=== PATIENT | female | born 1985 | race Caucasian/White ===

== ENCOUNTER → 2016-10-13 | Day surgery (SDC) | payer OTHER ==
[2016-10-13] VITALS (9 sets, daily range): BP systolic 112–139; BP diastolic 62–92; PULSE 62–86; RESP 14–18; O2SAT 95–98
[~2016-10-13] VITALS: Ht 162.6 cm; Wt 57.0 kg
[~2016-10-13] MED LIST: ACET325T51 PO; ALBU8.5H2 INHALATION; ALKA SELTZER; Albuterol 2.5 mg/3 mL Inhalation Solution NEB PRN; Atropine 0.4 mg/mL Inj IVPUSH PRN; Clindamycin 900 mg/50 mL D5W IV ONE; Clindamycin 900 mg/50 mL D5W Premix IV ONE; Dexamethasone 4 mg/mL Inj IVPUSH PRN; EPHEDrine Sulfate 50 mg/mL Inj IVPUSH PRN; EPHEDrine/NS 5 mg/mL 5 mL Syringe ONE; Glycopyrrolate 0.2 MG/ML 1mL Inj ONE; HYDROcodone-APAP 5-325 mg Tablet PO PRN; HYDROmorphone 1 mg/mL Inj IVPUSH PRN; Ketorolac 15 mg/mL Inj IVPUSH ONE; LORA10CA9 PO; Labetalol 5 mg/mL 20 mL Inj IV PRN; Lactated Ringer's 1,000 ML IV ONE; Lactated Ringer's 1,000 ML IV SCH; Lactated Ringer's 500 ML IV PRN; MetoCLOpramide 5 mg/mL 2 mL Inj IVPUSH PRN; NORG1TAB7 PO; Neostigmine 1 mg/mL 10 mL Inj ONE; NyQuil; Ondansetron 2 mg/mL 2 mL Inj IVPUSH PRN; Ondansetron 2 mg/mL 2 mL Inj ONE; Phenylephrine 10,000 mCg/mL Inj IVPUSH PRN; Phenylephrine/NS 100 mCg/mL 10 mL Syringe IVPUSH ONE; Propofol 10,000 mCg/mL 20 mL Inj ONE; Rocuronium 10 mg/mL 5 mL Inj ONE; Ropivacaine-PF 0.5% 30 mL Inj INFILTRATE ONE; fentaNYL-PF 50 mCg/mL 2 mL Inj IVPUSH PRN; fentaNYL-PF 50 mCg/mL 2 mL Inj ONE; hydrALAZINE 20 mg/mL Inj IVPUSH PRN; naproxen PO
--- NOTE | 2016-10-13 15:26 | PCM.ORTHOP ---
Orthopedic Operative Report Date of Service: Oct 13, 2016 Pre Operative Diagnosis right shoulder labral tear, biceps tendinitis Post Operative Diagnosis right shoulder labral tear, biceps tendinitis Procedure right shoulder arthroscopy, labral repair, open biceps tenodesis Surgeon Surgeon: Antonio Bird MD Assistants: Otto Taylor Indication for Procedure Right shoulder labral tear, biceps tendinitis Findings Right shoulder posterior superior labral tear, biceps tendinitis Details of Procedure RN PATIENT CARE SURGEON: During the operation, the services of physician certified surgical tech/first assistant were medically indicated and necessary to provide exposure of the operative site for the surgical procedure and to maintain the limb in a proper position to carry out the operation safely and efficiently. Without the qualified mri assistant being present, it would have extended the operative procedure and made the procedure technically more difficult to perform. INDICATIONS: The patient is Venkat Banuelos who is a 31-year-old female who has developed persistent pain and feelings of instability of the right shoulder. X- rays show the glenohumeral joint to be well maintained. The risks, benefits, and alternatives of surgery were discussed with the patient. The risks included but were not limited to infection, bleeding, damage to vessels and nerves, loss of motion, continued pain, complications due to anesthesia including myocardial infarction, stroke, , etc. The patient stated understanding of the nature of the surgical procedure and gave written and verbal consent to proceed. PROCEDURE: The patient was brought into the operating room and placed supine on the operating room table. A interscalene block was placed in the right shoulder for postoperative pain management, followed by the administration of general anesthesia. Preoperative antibiotics was given The patient was then placed into the lateral decubitus position with the right side up. An axillary role was placed and the legs were padded as necessary to avoid pressure points. The patient was maintained in position with a beanbag evacuation device. A thorough examination of the right shoulder under anesthesia was performed. The patient had 150 degrees of forward elevation and 120 degrees of abduction. In 90 degrees of abduction the patient had 90 degrees of external rotation and 60 degrees of internal rotation. The right shoulder was then examined for stability. In neutral rotation there was 1-2/5 posterior instability. The right upper extremity was then prepped and draped in the usual fashion. The arm was suspended with a well-padded sleeve with eight pounds of balanced suspension in the arthroscopic position. A standard posterior portal was made inferior and medial to the posterior corner of the acromion. The incision was made only through skin. The trocar was advanced through the soft tissue with a blunt-tipped obturator. This was inserted into the glenohumeral joint without difficulty. The arthroscope was placed through the cannula and attached to the video monitor system. Inflow was achieved using the arthroscopic pump. The pressure was maintained at 35-40 mm of mercury throughout the entire procedure. Once the arthroscope confirmed visualization within the shoulder joint, it was advanced anteriorly into the rotator interval beneath the biceps tendon. A Wissinger alana was then used to create the anterior portal from inside-out. A second anterior stab wound incision was made only through skin and an anterior cannula was placed. A routine arthroscopic survey was begun Survey: Biceps tendinitis, posterior superior labral tear from 9:00 to 11:00 Complex surgical procedure: This was an extremely complex surgical procedure which took approximately 30-40% longer to complete than a standard repair. Without the use of a qualified first calender worker, this surgical procedure would have taken even considerably longer and been unable to be performed arthroscopically Posterior labral repair: Attention was then directed toward posterior labral repair. An arthroscopic mid glenoid portal was established anteriorly just above the subscapularis with outside in localization. Attention was then directed posteriorly. Using a liberator elevator, the posterior labrum was elevated. A motorized shaver was then used to gently debride the labral edge, as well as to lightly abrade the exposed glenoid neck and bony surface. Once completed, a suture abram anchor was placed at the inferior-most margin of the exposed bony defect at approximately the 5:00 position. The anchor was deployed with excellent fixation purchase. The two stitches from the inferior- most anchor were then passed across the posterior inferior labral tear beginning the first pass at approximately the 9 position then advancing the labrum superiorly and laterally. A full thickness labral pass was taken filling the defect that was present. After securing this stitch , there appeared to be excellent repair of the posterior inferior labrum. The humeral head was sitting back centralized on the glenoid surface. There was excellent loop and knot security. A second anchor was not needed. There was an excellent restored posterior buttress. The head was well centralized. The biceps tendon was then tagged to preserve tension and then cut at its attachment to the labrum. An open incision along the flexor crease was made approximately 4 cm in length and careful dissection was made underneath the pectoralis tendon and the biceps was carefully dissected. 90 retractors were placed medial and lateral along the humeral shaft. The tendon was marked at the bone and the tendon along the groove and tenodesed with a 7 mm Arthrex biceps tenodesis screw. The skin was closed in layers including a 2-0 Vicryl, 4 -0 Monocryl with Dermabond, Steri-Strips Xeroform, 4 x 4 and Tegaderm dressing. Closure: The arm was then taken out of traction. The instability both in neutral rotation and in abduction external rotation was eliminated. The humeral head was well centralized. The arthroscope was then used to visualize the repair both from the anterior superior viewing portal and the posterior viewing portal which showed the humeral head to be well balanced with excellent and appropriate tissue tension. The glenohumeral joint was then copiously irrigated with an additional liter of lactated Ringers solution and excess fluid was drained. The arthroscopic portals were closed with #4-0 Nylon and Steri-Strips. A dry sterile dressing was applied, followed by a neutral rotation sling. The patient was awakened in the Operating Room and transported to the Recovery Room in satisfactory condition. He appeared to tolerate the procedure well. There were no complications noted. Nonweightbearing to affected upper extremity. Please leave sling on at all times. You may remove sling 3 times a day to move the elbow wrist and fingers. Do not move your shoulder. Please keep the affected extremity elevated when possible. You may use ice and/or heat as needed for comfort. Follow-up in 2 weeks with me with for suture removal and Steri-Strip application. Follow-up with me at 6 weeks with progression of physical therapy as per my protocol (please ask me for protocol if needed). Follow-up with me before full release at 3 months postop. Grafts, Implants: Implants-See Implant Record Complications There were no periprocedural complications identified. Condition Stable Anesthetic Administered: GA Catheters: None Output, Estimated Blood Loss: 5 Blood Admin during surgery: No Surgical Cast or Splint: Shoulder Immobilizer Surgical Specimen Removed: No Specimen sent to Pathology: No copies to: Antonio Bird MD, Christopher L MD Oct 13, 2016 15:26 and dissected free. With a retractor placed proximally, the coracoacromial ligament was identified laterally and 1 cm of the coracoacromial ligament was preserved along the coracoid process. The coracoacromial ligament was then released, also releasing the coracohumeral ligament deep. Once this was completed, the pectoralis minor tendon was identified and similarly well visualized. The pectoralis minor tendon was then released from the medial coracoid. Blunt dissection was then carried out feeling the curve of the coracoid process back to scapular body. The coracoclavicular ligaments were identified. A right angle saw blade from medial to lateral was then used to osteotomize the coracoid. Once completed, the remaining coracohumeral attachments were released from the lateral side. This allowed improved excursion of the conjoined tendon and the coracoid process, proteting the musculocutaneous nerve. The periosteal lip on theposterior coracoid was removed. The motorized saw was then used to decorticate the posterior margin of the coracoid process. Two 3.2 mm drill holes were then made through the graft from posterior to anterior spacing the holes within the bone block which measured mm. Once this was completed, the conjoined tendon was stored medial to the pectoralis retractor. With the arm adducted and externally rotated the subscapularis muscle tendon unit was identified. With the arm held in external rotation, the 3 sisters vessels were identified inferiorly and the rotator interval was identified proximally. At the mid portion, a longitudinal split was made in the muscle of the subscapularis. Blunt dissection was carried out using the Varner scissor down to the capsule. Once the capsule was identified, a Ray-Kristian sponge was placed medially along the scapular neck with a blunt-tipped Hohmann retractor. This allowed excellent visualization of the capsule. With the arm maintained in adduction, the glenohumeral joint was identified and a longitudinal capsular incision was carried out exposing the joint. A Fukuda retractor was placed in the glenohumeral joint retracting the humeral head laterally. The upper portion of the subscapularis was retracted using a Steinmann pin proximally into the body of the scapula. A Jose retractor was placed on the inferior margin of the glenoid retracting the inferior subscapularis. This gave excellent exposure. The labrum and the medial glenoid neck were then debrided. The inferior margin of the glenoid was confirmed and the glenohumeral joint was then copiously irrigated. The coracoid graft was then retrieved and provisionally positioned. The graft measured 4 mm from the center of the hole to the lateral edge of the graft. Once the appropriate position was confirmed, a 3.2 mm drill bit was used to drill the medial glenoid at the 4 mm jannet from the articular cartilage margin to ensure that it was parallel and not proud. This was then drilled and a 30 mm malleolar screw was then positioned blunting the sharp edge of the screw tip with a bur. Once the screw was passed, the graft was provisionally positioned in an excellent position. A [place] elevator was used to confirm appropriate position with no lateral overhang. It appeared to be well positioned at the edge of the glenoid margin. Once the graft was fixated inferiorly, the more proximal screw was similarly drilled through the medial glenoid just through the posterior cortex. This was similarly depth gauged at 30 mm. A second 30 mm malleolar screw with a blunted tip was then inserted with excellent fixation purchase. Both screws had solid fixation with two finger tightness. The Ray- Kristian sponge which had been placed deep to the subscapularis was removed. Care was taken to ensure that there was no overcompression of the graft to potentially risk fracture. Once completed, the arm was placed through a range of motion. The glenohumeral joint appeared to be stable. There was no further evidence of instability. There appeared to be an excellent blocking effect of the conjoined tendon on the inferior subscapularis. There was no instability. The glenohumeral joint was then copiously irrigated with bacitracin solution. With the arm held in 30 degrees of abduction and 30 degrees of external rotation the coracoacromial ligament was then repaired to the anterior capsule. This was closed with interrupted #1. The wound was then again copiously irrigated with bacitracin solution. The deltopectoral interval was reapproximated with 0 Vicryl. The subcutaneous tissue was closed in layers with 2-0 and 3-0 Vicryl protecting the cephalic vein. The skin was reapproximated with 4-0 Monocryl and Dermabond. A dry, sterile tegaderm dressing was applied followed by a bulky, soft bandage and a neutral rotation sling. At the completion of surgery, he had palpable pulses, soft compartments and brisk capillary refill. The sponge and needle counts were reported as correct intraoperatively and at the completion of the surgical procedure. He received an additional antibiotic at the completion of surgery. There were no complications noted. He appeared to tolerate the procedure well. Closure: The arm was then taken out of traction. The instability both in neutral rotation and in abduction external rotation was eliminated. The humeral head was well centralized. The arthroscope was then used to visualize the repair both from the anterior superior viewing portal and the posterior viewing portal which showed the humeral head to be well balanced with excellent and appropriate tissue tension. The glenohumeral joint was then copiously irrigated with an additional liter of lactated Ringers solution and excess fluid was drained. The arthroscopic portals were closed with #4-0 Nylon and Steri-Strips. A dry sterile dressing was applied, followed by a neutral rotation sling. The patient was awakened in the Operating Room and transported to the Recovery Room in satisfactory condition. He appeared to tolerate the procedure well. There were no complications noted. Nonweightbearing to affected upper extremity. Please leave sling on at all times. You may remove sling 3 times a day to move the elbow wrist and fingers. Do not move your shoulder. Please keep the affected extremity elevated when possible. You may use ice and/or heat as needed for comfort. Follow-up in 2 weeks with me with for suture removal and Steri-Strip application. Follow-up with PA at 6 weeks with progression of physical therapy as per my protocol (please ask me for protocol if needed). Follow-up with me before full release at 3 months postop. Complications There were no periprocedural complications identified. Condition Stable Antonio Bird MD Oct 13, 2016 15:26
--- NOTE | 2016-10-13 15:32 | PCM.ANEP1 ---
Post Anesthesia PACU Phase 1 Assessment Date of Service: Oct 13, 2016 Vital Signs Vital Signs Date Time Temp Pulse Resp B/P Pulse Ox O2 Delivery O2 Flow Rate FiO2 10/13/16 12:28 36.7 86 18 139/92 97 Room Air Anesthetic Administered: GA, Regional Block Level of Alertness: Awake, talking REYES's with Equal Strength: No (good functioning block) Pain: No Nausea or Vomiting: No CV Function & Hydration Stable: Yes Airway Device: Oxygen Delivery: Simple Mask Lungs: Normal Air Movement PACU Phase 2 Assessment Complications: No Follow up Care: N/A Patient Instructions Provided: N/A Joon Griffiths MD Oct 13, 2016 15:32
--- NOTE | 2016-10-14 10:18 | PCM.HPANE ---
Patient Data Surgeon Admitting Provider: Attending Provider:Antonio Bird MD Primary Care Physician:Mustapha Sepulveda DO Other Provider:Irineo Leonard Anesthesia Reason for Visit Right Shoulder Labral Tear Ht/WT & BMI Height (Feet): 5 Height (Inches): 4 Weight (Kilograms): 57. Body Mass Index 21.00 Allergies Coded Allergies: Penicillins (Verified Allergy, Severe, Anaphylaxis, 10/06/16) Sulfa (Sulfonamide Antibiotics) (Verified Allergy, Severe, Anaphylaxis, ) latex (Verified Allergy, Severe, Anaphylaxis, 10/06/16) Past Anesthesia History Anesthesia History: Denies:: Abnormal Airway, Anesthesia Reactions (never has had surgery), Difficult Intubation, Fam Anesthesia Reaction, Fam Malignant Hypertherm, Malignant Hyperthermia Diabetes History Hx Diabetes?: No MRSA MRSA: No Medications Reported Medications [Portia seltzer] No Conflict Check 10/13/16 [NyQuil ] No Conflict Check 10/13/16 [naproxen] No Conflict Check Mg PO HS #2 10/06/16 Loratadine 10 Mg [id number] Mg PO DAILY 10/06/16 Norgestimate-Ethinyl Estradiol (Ortho Tri-Cyclen)1 Each Tablet1 Each PO DAILY 10/06/16 Albuterol HFA (Proair HFA)8.5 Gm Hfa.aer.ad2 Puffs INHALATION Q4H #1 INHALER 10/06/16 Acetaminophen 325 Mg [id number] Mg PO QID PRN For Fever #2 TABLET Ref 0 10/06/16 History History of ENT Problems?: No HEENT History: Positive for:: Sinus Problem (allergy related) Denies:: Abnormal Airway Cataracts Difficult Intubation Dysphagia Glaucoma Hearing Problem TMJ Denture Type: None Teeth Condition: Within Normal Limits Hx of Heart Problems?: Yes Cardiovascular History: Denies:: AICD Abdominal Aortic Aneurism Atrial Fibrillation Cardiac Surgery Chest Pain Congestive Heart Failure Coronary Artery Disease Edema Heart Murmur Hypertension Irregular Heartbeat Pacemaker Peripheral Vascular Rheumatic Fever Thrombophlebitis Valvular Heart Disease Hx of Respiratory Problem?: Yes Respiratory History: Positive for:: Asthma (exercise induced and air quality induced) Use of Inhalers / NEBS (Albuterol inhaler) Denies:: COPD Chest Surgery Cough Dyspnea Emphysema Hemoptysis Oxygen Administration Pneumonia Pulmonary Embolism Tuberculosis Use of C-PAP Machine Hx Neurologic Problems?: Yes Neurological History: Positive for:: Dizziness (only with headaches) Headaches Denies:: Alzheimer's Disease CVA Dementia Parkinson's Disease TIA Hx of GI Problems?: Yes Hx of Problems?: No Genitourinary History: Denies:: HX of Hemodialysis Kidney Stones Urinary Tract Infection HX of Peritoneal Dialysis: No Female Hx: Positive for:: Endometriosis Denies:: Currently Problems with Breasts? Skin History: Denies:: History Skin Disorders? Pressure Ulcers Hx Musculoskeletal Problems?: Yes Musculoskeletal History: Positive for:: Back Injury (lower to mid back ddd, scoliosis) Osteoarthritis Denies:: Degenerative Joint Fibromyalgia Joint Replacement Musculoskeletal Trauma Rheumatoid Arthritis Systemic Lupus Hx of Psycho/Social Problems?: Yes Psycho Social History: Positive for:: Anxiety Hx Depression Denies:: Suicide Attempt Hx Surgeries?: No Other History: Denies:: Cancer Hospitalization Thyroid Disease History Blood Transfusions: Positive for:: Accept Blood Products? Denies:: Blood Transfusions Hx Diabetes: No Hx Alcohol Use: NoHx Substance Use: No Stop/Bang S-Snoring: Do You Snore Loudly: No T-Tired: feel tired, fatigued: Yes O-Obsered: Observed not breath: No P-Blood Pressure: treated: No B- Body Mass Index > 35 kg/m2: No A- Age over 50: No N- Neck Large Circumference: No G- Gender Male: No DOMINIQUE Total Score: 1 Risk Assessment Category Category 1A: Patient has history of documented sleep apnea, and HAS NOT received any narcotic, sedative or anesthesia administration during this stay. Category 1B: Patient has history of documented sleep apnea, and HAS received any narcotic , sedative or anesthesia administration during this stay Category 2: Patient has SUSPECTED Obstructive Sleep Apnea, and HAS received any narcotic , sedative or anesthesia administration during this stay. Category 3: Patient has SUSPECTED Obstructive Sleep Apnea and HAS NOT received narcotic, sedative or anesthesia administration during this stay. Category 4: Outpatient in Procedural Areas with known sleep apnea or who screen positive for High Risk via the STOP/BANG questionnaire. Exam Exam General Appearance: Alert, Oriented X3, Cooperative, No Acute Distress HEENT/AIRWAY: MP 2, Neck Movement (FROM) Lungs: Clear to Auscultation, Normal Air Movement Heart: Exam Unremarkable, Regular Rate/Rhythm, No Murmurs/Rubs/Gallops Plan Impression Patient chart reviewed, patient interviewed and anesthestic plan with risks, benefits, and alternatives discussed, and informed consent obtained. NPO per Anesth. Guidelines: Yes ASA Physical Status: ASA2 Mod Systemic Disease Anesthetic Plan: GA, Regional Block (shoulder block) Bene/Risks/Altern/Consents: Yes Andrea Dailey MD Oct 13, 2016 12:14
== END | disposition home or self-care (01) ==
LOC: SAS 11:36
PROVIDERS: ATTEND Orthopaedic Surgery
DX: S43.431A Superior glenoid labrum lesion of right shoulder, initial encounter (principal); M75.21 Bicipital tendinitis, right shoulder; F41.8 Other specified anxiety disorders; M19.90 Unspecified osteoarthritis, unspecified site; V49.9XXA Car occupant (driver) (passenger) injured in unspecified traffic accident, initial encounter; Y93.9 Activity, unspecified; Y92.9 Unspecified place or not applicable; Y99.8 Other external cause status
CPT/HCPCS: 23430; 29807; 76942; C1713; J2250; J2370; J2405; J2704; J2710; J2795; J3010; J3490; J7120